=== PATIENT | female | born 1950 | race Caucasian/White ===

== ENCOUNTER → 2017-01-19 | Outpatient (CLI) | payer OTHER ==
[2016-12-08 08:28] VITALS: BP 138/66
--- NOTE | 2017-01-19 14:33 | VAS ---
HISTORY: Leg pain and swelling Study: Color flow and duplex Doppler studies of the left lower leg. Comparison: None TECHNIQUE: Multiple stanley scale and color flow Doppler images of the deep venous system were obtaine d of the left lower extremity. FINDINGS: The deep venous system of the left lower extremity was evaluated from the level of the common femora l vein through the popliteal vein. Normal color flow and augmentation can be observed. In addition , normal compression is seen throughout the deep venous system. IMPRESSION: Negative for DVT. Reported By:
== END ==
LOC: RAD 13:42
PROVIDERS: ATTEND Internal Medicine
DX: M79.605 Pain in left leg (principal)
CPT/HCPCS: 93971

== ENCOUNTER 2017-04-05 19:16 | Emergency (ER) | payer OTHER ==
[2017-04-05 19:23] VITALS: BMI 30.4
--- NOTE | 2017-04-05 20:44 | DR.GENAD ---
HPI - PCP Primary Care Physician: Param - Complaint/Symptoms Chief Complaint Doctors Comments: patient admits to having stents on 18 February, has been having chest pressure for about a week now; called her pcp today who advised NTG. Dante states that chest pressure worse the lastthree days.She also admits to left leg pain. She denies diarphoresis. Chief Complaint:: "My chest has been hurting for over a week now. It just feels like a lot of pressure. I have had stents in the past because I had a 90% blockage. I just don't feel well" - Source History Provided: Patient - Mode of Arrival Mode of Arrival: Ambulatory - Timing Onset of Chief Complaint: 03/29/17 PMH - PMH Past Medical History: Yes Past Medical History: Coronary Artery Disease, Hypertension Past Surgical History: Yes Surgical History: Angioplasty/Stents - Family History History of Family Medical Conditions: Yes Family Medical History: Cancer, [place], Coronary Artery Disease, Hypertension - Social History Does patient currently use any type of tobacco product: No Have you used tobacco products in the last 12 months: No Type of Tobacco Use: None Does any household member use tobacco: No Do you use any recreational Drugs:: No Lives With: Family Lives Where: Home - infectious screening In the last 2 months have you had wt loss of >10#?: NO Have you had fever, night sweats or hemotysis?: No Have you traveled outside the country in the last 6 months?: No Isolation: Standard ROS - Review of Systems Constitutional: negative: Diaphoresis Eyes: No Symptoms Reported, Eye Pain Respiratoy: No Symptoms Reported Cardiovascular: No Symptoms Reported Gastrointestinal/Abdominal: No Symptoms Reported Genitourinary: No Symptoms Reported Neurological: No Symptoms Reported Musculoskeletal: No Symptoms Reported Integumentary: No Symptoms Reported Hematologic/Lymphatic: No Symptoms Reported Endocrine: No Symptoms Reported Psychiatric: No Symptoms Reported All Other Systems: Reviewed and Negative PE - Vital Signs Vitals: Temperature 98.2 F Pulse Rate [Right Brachial] 57 Pulse Rate 76 Respiratory Rate 16 Blood Pressure [Right Arm] 142/74 Blood Pressure 165/74 O2 Sat by Pulse Oximetry 99 - General Limitations: No Limitations General Appearance: Alert, In No Apparent Distress, Anxious - Head Head Exam: Normal Inspection, Atraumatic - ENT ENT Exam: Normal Exam, Normal Oropharynx External Ear Exam: Normal External Inspection TM/Canal Exam: Bilateral Normal Nose Exam: Normal Nose Exam, Sinus Tenderness Mouth Exam: Normal Inspection Throat Exam: Normal Inspection - Neck Neck Exam: Normal Inspection, Full ROM - Chest Chest Inspection: Normal Inspection - Respiratory Respiratory Exam: Normal Lung Sounds Bilat Respiratory Exam: Bilateral Clear to Auscultation - Cardiovascular Cardiovascular Exam: Regular Rate, Normal Rhythm - Abdominal Exam Abdominal Exam: Normal Inspection, Normal Bowel Sounds Abdominal Tenderness: negative: RUQ, RLQ, LUQ, LLQ, Epigastrium, Suprapubic, Diffuse, Mild, Moderate, Severe, Other - Extremities Extremities Exam: Normal Inspection - Back Back Exam: Normal Inspection, Full ROM - Neurologic Neurological Exam: Alert, Oriented X3, CN II-XII Intact - Psychiatric Psychiatric Exam: Normal Affect, Normal Mood - Skin Skin Exam: Warm, Dry, Intact Course - Consultation Called: 22:25 (Dr García accepted patient for recath) ROR - Labs Reviewed Laboratory Results Reviewed?: Yes (low potassium) Result Diagrams: 04/05/17 20:51 04/05/17 20:51 Laboratory: WBC 9.0 X10^3/uL (3.6-10.0) 04/05/17 20:51 RBC 5.03 X10^6/uL (3.5-5.4) 04/05/17 20:51 Hgb 15.0 g/dL (12.0-16.0) 04/05/17 20:51 Hct 43.5 % (36.0-47.0) 04/05/17 20:51 MCV 86.4 fL (80.0-100.0) 04/05/17 20:51 MCH 29.7 pg (27.0-34.0) 04/05/17 20:51 MCHC 34.4 g/dL (33.0-35.0) 04/05/17 20:51 RDW 13.0 % (11.6-16.5) 04/05/17 20:51 Plt Count 309 X10^3/uL (150.0-450.0) 04/05/17 20:51 MPV 8.3 fL (7.4-11.0) 04/05/17 20:51 Neut % 60.7 % (42.0-75.0) 04/05/17 20:51 Lymph % 28.7 % (21.0-51.0) 04/05/17 20:51 Sullivan % 8.7 % (0.0-13.0) 04/05/17 20:51 Eos % 1.4 % (0.9-2.9) 04/05/17 20:51 Baso % 0.5 % (0.2-1.0) 04/05/17 20:51 Neut # 5.5 x10^3/uL (2.2-4.8) H 04/05/17 20:51 Lymph # 2.6 X10^3/uL (1.3-2.9) 04/05/17 20:51 Sullivan # 0.8 x10^3/uL (0.3-0.8) 04/05/17 20:51 Eos # 0.1 x10^3/uL (0.0-0.2) 04/05/17 20:51 Baso # 0.0 X10^3/uL (0.0-0.1) 04/05/17 20:51 Absolute Nucleated RBC 0.0 /100WBC 04/05/17 20:51 INR Target Range - 04/05/17 20:51 INR 0.95 (0.8-1.3) 04/05/17 20:51 PTT 30.8 SECONDS (22.9-36.5) 04/05/17 20:51 PTT Comment - 04/05/17 20:51 Sodium 138 mmol/L (136-145) 04/05/17 20:51 Corrected Sodium TNP 04/05/17 20:51 Potassium 3.3 mmol/L (3.5-5.1) L 04/05/17 20:51 Chloride 101 mmol/L (98-107) 04/05/17 20:51 Carbon Dioxide 32.2 mmol/L (21-32) H 04/05/17 20:51 BUN 12 mg/dL (7-18) 04/05/17 20:51 Creatinine 0.87 mg/dL (0.55-1.02) 04/05/17 20:51 Est GFR (MDRD) Af Amer > 60 (>60) 04/05/17 20:51 Est GFR (MDRD) Non-Af > 60 (>60) 04/05/17 20:51 Glucose 101 mg/dL (65-99) H 04/05/17 20:51 Calcium 9.2 mg/dL (8.5-10.1) 04/05/17 20:51 Corrected Calcium TNP 04/05/17 20:51 Phosphorus 3.5 mg/dL (2.6-4.7) 04/05/17 20:51 Magnesium 2.0 mg/dL (1.7-2.9) 04/05/17 20:51 Total Bilirubin 0.30 mg/dL (0.2-1.0) 04/05/17 20:51 AST 25 Units/L (15-37) 04/05/17 20:51 ALT 46 Units/L (12-78) 04/05/17 20:51 Alkaline Phosphatase 90 Units/L (46-116) 04/05/17 20:51 Creatine Kinase 203 Units/L (26-192) H 04/05/17 20:51 CK-MB (CK-2) 3.0 ng/mL (0-4.0) 04/05/17 20:51 CK/CKMB % Calc 1.5 % (<4) 04/05/17 20:51 Troponin I < 0.02 ng/mL (0-1.5) 04/05/17 20:51 Total Protein 7.3 g/dL (6.4-8.2) 04/05/17 20:51 Albumin 3.8 g/dL (3.4-5.0) 04/05/17 20:51 Globulin 3.5 g/dL (2.5-4.5) 04/05/17 20:51 Albumin/Globulin Ratio 1.1 Ratio (1.1-2.1) 04/05/17 20:51 - XRAY XRAY Interpreted by: Radiologist (Chest: No acute process) - Diagnosis Discharge Problem: Chest Pressure - Discharge Plan Condition: Stable - Follow ups/Referrals Follow ups/Referrals: Дмитрий Virgen [Primary Care Provider] - 3 days - Instructions
[2017-04-05 20:58] LABS: BASOPHILS % (AUTO) 0.5 % (0.2-1.0); EOSINOPHILS # (AUTO) 0.1 x10^3/uL (0.0-0.2); EOSINOPHILS % (AUTO) 1.4 % (0.9-2.9); HEMATOCRIT 43.5 % (36.0-47.0); LYMPHOCYTES # (AUTO) 2.6 X10^3/uL (1.3-2.9); LYMPHOCYTES % (AUTO) 28.7 % (21.0-51.0); MEAN CORPUSCULAR HEMOGLOBIN 29.7 pg (27.0-34.0); MEAN CORPUSCULAR HGB CONC 34.4 g/dL (33.0-35.0); MEAN CORPUSCULAR VOLUME 86.4 fL (80.0-100.0); MEAN PLATELET VOLUME 8.3 fL (7.4-11.0); MONOCYTES # (AUTO) 0.8 x10^3/uL (0.3-0.8); MONOCYTES % (AUTO) 8.7 % (0.0-13.0); NEUTROPHILS # (AUTO) 5.5 x10^3/uL (2.2-4.8); NEUTROPHILS % (AUTO) 60.7 % (42.0-75.0); PLATELET COUNT 309 X10^3/uL (150.0-450.0); RED BLOOD COUNT 5.03 X10^6/uL (3.5-5.4)
[2017-04-05 21:15] LABS: BLOOD UREA NITROGEN 12 mg/dL (7-18); CALCIUM 9.2 mg/dL (8.5-10.1); CARBON DIOXIDE 32.2 mmol/L (21-32); CHLORIDE 101 mmol/L (98-107); CREATININE 0.87 mg/dL (0.55-1.02); GLUCOSE 101 mg/dL (65-99); SODIUM 138 mmol/L (136-145); TROPONIN I < 0.02 ng/mL (0-1.5); eGFR BLACK RACES > 60 (>60); eGFR NON BLACK RACES > 60 (>60)
[2017-04-05 21:19] LABS: ALANINE AMINOTRANSFERASE 46 Units/L (12-78); ALBUMIN 3.8 g/dL (3.4-5.0); ALKALINE PHOSPHATASE 90 Units/L (46-116); ASPARTATE AMINO TRANSFERASE 25 Units/L (15-37); CKMB % 1.5 % (<4); CREATINE KINASE 203 Units/L (26-192); PHOSPHORUS 3.5 mg/dL (2.6-4.7); TOTAL PROTEIN 7.3 g/dL (6.4-8.2)
--- NOTE | 2017-04-05 21:37 | RAD ---
Chest, one view Indication: Chest pain. Comparison: CT chest 03/12/2015 Findings: The cardiac size is normal. The lungs are clear without focal infiltrate or large effusion . The bony thorax is unremarkable. Impression: No acute chest process. Reported By:
[2017-04-05] MEDS ORDERED: MORPHINE SULFATE INJ 4 MG IVP ONE (21:49)
[2017-04-05] MEDS ORDERED: MORPHINE SULFATE INJ 4 MG ONE (21:50)
[2017-04-05 22:55] VITALS: BP 142/74
[2017-04-05] MEDS ORDERED: POTASSIUM CHLORIDE LIQ 20 MEQ UDC PO ONE (23:02)
[2017-04-05] MEDS ORDERED: POTASSIUM CHLORIDE LIQ 20 MEQ UDC ONE (23:03)
== END 2017-04-05 23:21 | disposition short-term general hospital (02) ==
LOC: ER 19:28
DX: R07.89 Other chest pain (principal)
CPT/HCPCS: 36415; 71010; 80053; 82550; 82553; 83735; 84100; 84484; 85025; 85610; 85730; 93005; 96365; 96374; 99285; A4222; J2270

== ENCOUNTER → 2017-04-11 | Outpatient (CLI) | payer OTHER ==
[2017-04-05 22:55] VITALS: BP 142/74
[2017-04-11 10:22] LABS: BLOOD UREA NITROGEN 9 mg/dL (7-18); CALCIUM 8.5 mg/dL (8.5-10.1); CARBON DIOXIDE 30.3 mmol/L (21-32); CHLORIDE 106 mmol/L (98-107); CREATININE 0.69 mg/dL (0.55-1.02); GLUCOSE 86 mg/dL (65-99); SODIUM 140 mmol/L (136-145); eGFR BLACK RACES > 60 (>60); eGFR NON BLACK RACES > 60 (>60)
--- NOTE | 2017-04-11 10:29 | RAD ---
HISTORY: Pain. Study: Multiple views of the left tibia/fibula. Comparison: None. Findings: No acute cortical disruption or dislocation can be identified. No significant soft tissue swelling or injury can be seen. IMPRESSION: No acute osseous abnormality. Reported By:
== END ==
LOC: RAD 09:45
PROVIDERS: ATTEND Physician Assistant
DX: M79.662 Pain in left lower leg (principal); E87.6 Hypokalemia
CPT/HCPCS: 36415; 73590; 80048

== ENCOUNTER → 2017-08-14 | Outpatient (CLI) | payer OTHER ==
--- NOTE | 2017-08-21 08:25 | MG ---
HISTORY: SCREENING Comparison: 08/18/2016 FINDINGS: Bilateral CC and MLO projections of the right and left breast were obtained. Scattered fibroglandula r tissue is seen to be present. No significant architectural distortion, mass or clustered microcalc ifications can be observed to suggest malignancy. No skin thickening or nipple retraction is appreci ated. No pathological lymphadenopathy can be identified. Benign-appearing calcifications scattered throughout the right and left breasts are observed. IMPRESSION: NO RADIOGRAPHIC EVIDENCE OF MALIGNANCY. ACR CATEGORY 2 - benign findings. FOLLOW-UP EXAM 1 YEAR. Diagnostic CAD was utilized and reviewed. * 0 (ZERO) - ASSESSMENT INCOMPLETE; ADDITIONAL IMAGING IS NEEDED. * 1/ (ONE) - NEGATIVE. * 2/II (TWO) - BENIGN FINDINGS. * 3/III (THREE) - PROBABLY BENIGN FINDING; SHORT INTERVAL FOLLOW-UP SUGGESTED. * 4/IV (FOUR) - SUSPICIOUS ABNORMALITY; BIOPSY SHOULD BE CONSIDERED. * 5/V - HIGHLY SUSPICIOUS OF MALIGNANCY; BIOPSY SHOULD BE PERFORMED. A NEGATIVE X-RAY REPORT SHOULD NOT DELAY BIOPSY IF A DOMINANT OR CLINICALLY SUSPICIOUS MASS IS PRESENT; 4 TO 8 PERCENT OF CANCERS ARE NOT IDENTIFIED BY X-RAY. A NEGA TIVE REPORT MAY REINFORCE THE CLINICAL IMPRESSION. ADENOSIS AND DENSE BREASTS MAY OBSCURE AN UNDERLY ING NEOPLASM. Reported By:
== END ==
LOC: RAD 10:26
PROVIDERS: ATTEND Internal Medicine
DX: Z12.31 Encounter for screening mammogram for malignant neoplasm of breast (principal)
CPT/HCPCS: 77067